=== PATIENT | female | born 1980 | race Caucasian/White ===

== ENCOUNTER → 2021-06-09 | Outpatient (CLI) | payer OTHER, SELFPAY ==
--- NOTE | 2021-06-09 09:40 | RAD_ITS ---
STUDY: X-RAY - ABDOMEN/PELVIS REASON FOR EXAM: Female, 41 years old. Urinary calculus. TECHNIQUE: Single AP view of the abdomen / pelvis on 2 images. COMPARISON: None. FINDINGS: Normal visualized lung bases. There is an unremarkable bowel gas pattern. There is no demonstrated free abdominal air. The visualized liver, spleen and kidneys are grossly normal in size and morphology. Multiple phleboliths. Normal visualized osseous structures. RAD/Abdomen Single View IMPRESSION: Phleboliths. No renal calculi identified. Electronically Signed: Fermín Redding MD at 11:08 EDT ,
== END | disposition home or self-care (01) ==
LOC: RAD 09:24
PROVIDERS: Referring Provider Registered Nurse; Visit Provider Registered Nurse
DX: N20.9 Urinary calculus, unspecified (principal)
CPT/HCPCS: 74018